=== PATIENT | male | born 1965 | race Caucasian/White ===

== ENCOUNTER 2022-02-19 11:53 | Day surgery (SDC) | payer BC ==
[~2022-02-19] VITALS: Ht 175.3 cm; Wt 79.4 kg
[~2022-02-19 11:53] MED LIST: CEFAZOLIN SOD 2 GM in D5W 50 ML IV ONE
[2022-02-19] MEDS ORDERED: ROCURONIUM BROMIDE 10 MG/ML (ZEMURON) ONE (16:15)
[2022-02-19] MEDS ORDERED: NS 1000 ML IV.SOLN IV ONE (16:15)
[2022-02-19] MEDS ORDERED: LR 1,000 ML IV.SOLN IV ONE (16:15)
[2022-02-19] MEDS ORDERED: BUPIVACAINE /PF 0.25% 30 ML VIAL INJ ONE (16:15)
[2022-02-19] MEDS ORDERED: MIDAZOLAM HCL 2 MG/2 ML VIAL (VERSED) ONE (16:15)
[2022-02-19] MEDS ORDERED: fentaNYL CITRATE/PF 100 MCG/2 ML AMP ONE (16:15)
[2022-02-19] MEDS ORDERED: NS IRRIG SOLN 1000 ML IR ONE (16:15)
[2022-02-19] MEDS ORDERED: PROPOFOL 200MG/ 20ML VIAL (DIPRIVAN) IV ONE (16:15)
[2022-02-19] MEDS ORDERED: SEVOFLURANE 15 MIN GAS INH ONE (16:15)
[2022-02-19] MEDS ORDERED: METOCLOPRAMIDE HCL 10 MG/2 ML VIAL IVP PRN (16:45)
[2022-02-19] MEDS ORDERED: fentaNYL CITRATE/PF 100 MCG/2 ML AMP IVP PRN ×2 (16:45)
[2022-02-19] MEDS ORDERED: ONDANSETRON HCL 4 MG/2 ML VIAL IVP PRN (16:45)
[2022-02-19] MEDS ORDERED: BUPIVACAINE LIPOSOME/PF 266 MG/20 ML VIAL INFIL ONE (17:49)
[2022-02-19] MEDS ORDERED: HYDROcodone/ACETAMIN 5-325 MG TAB (NORCO/ VICODIN) PO PRN (20:00)
[2022-02-19 20:35] VITALS: BP_SYST 114
--- NOTE | 2022-02-19 20:35 | NUR ---
REC'D PT FORM PACU NURSE, ORDER FOR D/C HOME NOTED, PT OFFERED CLEAR LIQUID FOOD, DENIES PAIN, NO N/V NOTED, VITAL SIGNS STABLE, WAITING FOR DAUGHTER TO PICK-UP MEDICATION FROM PHARMACY, WILL CONTINUE TO MONITOR.
[2022-02-19 21:46] VITALS: BP_SYST 124
[2022-02-19 22:11] VITALS: BP_SYST 124
== END 2022-02-19 23:18 | disposition home or self-care (01) ==
LOC: SDS 11:53 → SMU 12:04 → SDS 23:18
PROVIDERS: ATTEND Surgery
DX: K43.9 Ventral hernia without obstruction or gangrene (principal); K42.9 Umbilical hernia without obstruction or gangrene; Z20.822 Contact with and (suspected) exposure to COVID-19; Z79.899 Other long term (current) drug therapy
CPT/HCPCS: 36415; 49652; 87426; C1727; C1781; C9290; J0690; J2704; J3010; J3465; J3490; J7030; J7060; J7120; S2900; E0190